=== PATIENT | female | born 1960 | race Two or more races ===

== ENCOUNTER 2021-12-11 11:17 | Outpatient (CLI) | payer OTHER | END 2021-12-11 11:27 | disposition home or self-care (01) | LOC: LAB 11:17 | PROVIDERS: ATTEND Radiology Diagnostic Radiology | DX: K57.20 Diverticulitis of large intestine with perforation and abscess without bleeding (principal); K57.32 Diverticulitis of large intestine without perforation or abscess without bleeding ==

== ENCOUNTER 2021-12-20 08:19 | Outpatient (CLI) | payer OTHER | END 2021-12-20 08:21 | disposition home or self-care (01) | LOC: RX STUDY 08:19 | PROVIDERS: ATTEND Colon & Rectal Surgery | DX: K57.20 Diverticulitis of large intestine with perforation and abscess without bleeding (principal) ==

== ENCOUNTER 2022-02-13 06:02 | Day surgery (SDC) | payer OTHER | END 2022-02-13 09:10 | disposition home or self-care (01) | LOC: AMB-ENDOS 06:02 → CIR.AMB 14:15 | PROVIDERS: ATTEND Colon & Rectal Surgery | DX: K64.0 First degree hemorrhoids (principal); Z93.2 Ileostomy status; K57.30 Diverticulosis of large intestine without perforation or abscess without bleeding; Z20.822 Contact with and (suspected) exposure to COVID-19; K62.89 Other specified diseases of anus and rectum; I10 Essential (primary) hypertension ==

== ENCOUNTER 2022-05-11 09:15 | Inpatient (IN) | payer OTHER ==
[~2022-05-11] VITALS: Ht 154.9 cm; Wt 63.5 kg
[2022-05-11] MEDS ORDERED: LOSARTAN POTASS50 MG PO (12:00)
[2022-05-11] MEDS ORDERED: METOP PO (12:00)
[2022-05-11] MEDS ORDERED: CREST PO (12:00)
[2022-05-11] MEDS ORDERED: CLONAZEPAM2 MG PO (12:01)
[2022-05-11] MEDS ORDERED: MULTIVIT PO (12:02)
[2022-05-11] MEDS ORDERED: PROZAC PO (12:02)
[2022-05-16] MEDS ORDERED: TOPROL XL25 M1 (13:39)
[2022-05-16] MEDS ORDERED: CRESTOR5 MG (13:39)
[2022-05-16] MEDS ORDERED: PROZAC10 MG (13:39)
[2022-05-16] MEDS ORDERED: MULTI VITAMIN1 EACH (13:39)
== END 2022-06-07 16:37 | disposition home or self-care (01) | DRG 329 ==
LOC: O/R 05-16 08:18 → SURH 05-16 08:18
PROVIDERS: ADMIT Colon & Rectal Surgery; ATTEND Colon & Rectal Surgery
PROC: 0DBP0ZZ Excision of Rectum, Open Approach (ICD-10-PCS; 2022-05-16)
PROC: 0DB80ZZ Excision of Small Intestine, Open Approach (ICD-10-PCS; 2022-05-16)
PROC: 0DNW0ZZ Release Peritoneum, Open Approach (ICD-10-PCS; 2022-05-16)
PROC: 0DN80ZZ Release Small Intestine, Open Approach (ICD-10-PCS; 2022-05-16)
PROC: 0DTN0ZZ Resection of Sigmoid Colon, Open Approach (ICD-10-PCS; principal; 2022-05-16 19:30)
PROC: 02HV33Z Insertion of Infusion Device into Superior Vena Cava, Percutaneous Approach (ICD-10-PCS; 2022-05-25)
PROC: 8E0ZXY6 Isolation (ICD-10-PCS; 2022-05-28)
PROC: 2W13X6Z Compression of Abdominal Wall using Pressure Dressing (ICD-10-PCS; 2022-06-01)
DX: K57.20 Diverticulitis of large intestine with perforation and abscess without bleeding (principal); J18.0 Bronchopneumonia, unspecified organism; J95.89 Other postprocedural complications and disorders of respiratory system, not elsewhere classified; T81.49XA Infection following a procedure, other surgical site, initial encounter; T81.31XA Disruption of external operation (surgical) wound, not elsewhere classified, initial encounter; Z16.12 Extended spectrum beta lactamase (ESBL) resistance; B96.20 Unspecified Escherichia coli [E. coli] as the cause of diseases classified elsewhere; B96.4 Proteus (mirabilis) (morganii) as the cause of diseases classified elsewhere; Z43.3 Encounter for attention to colostomy; K66.0 Peritoneal adhesions (postprocedural) (postinfection)

== ENCOUNTER 2024-07-05 06:42 | Emergency (ER) | payer OTHER ==
[~2024-07-05] VITALS: Ht 162.6 cm; Wt 77.1 kg
[~2024-07-05 06:42] MED LIST: BENZONATATE200 M1 PO; CLONAZEPAM2 MG PO; CREST PO; CRESTOR5 MG; LOSARTAN POTASS50 MG PO; METOP PO; MULTI VITAMIN1 EACH; MULTIVIT PO; PEPCID AC20 MG PO; PROZAC PO; PROZAC10 MG; TOPROL XL25 M1; ZITHROMAX500 MG PO
[2024-07-05] MEDS ORDERED: MECLIZINE HCL25 MG PO (09:36)
== END 2024-07-05 09:51 | disposition home or self-care (01) ==
LOC: ER 06:44
DX: R42 Dizziness and giddiness (principal); H61.23 Impacted cerumen, bilateral; H93.13 Tinnitus, bilateral; Z88.8 Allergy status to other drugs, medicaments and biological substances; I10 Essential (primary) hypertension; Z98.890 Other specified postprocedural states

== ENCOUNTER 2024-07-23 12:04 | Emergency (ER) | payer OTHER ==
[~2024-07-23] VITALS: Ht 154.9 cm; Wt 77.1 kg
[~2024-07-23 12:04] MED LIST changes: +MECLIZINE HCL25 MG PO
[2024-07-23] MEDS ORDERED: 0.9 % SODIUM CHLORIDE 1,000 ML IV SCH (12:45)
[2024-07-23] MEDS ORDERED: KETOROLAC TROMETHAMINE 30 MG VIAL IV ONE (12:45)
[2024-07-23] MEDS ORDERED: KETOROLAC TROMETHAMINE 30 MG VIAL ONE (12:46)
[2024-07-23] MEDS ORDERED: BARIUM SULFATE 450 ML ORAL.SUSP PO ONE (12:46)
[2024-07-23 13:17] LABS: HEMOGLOBIN 11.9 g/dL (12.0-15.00); MEAN CELL VOLUME 87.2 fL (80.00-100.00); MEAN CORPUSCULAR HEMOGLOBIN 28.8 pg (27.00-32.0); PLATELET COUNT 250 K/uL (150-450); RED BLOOD COUNT 4.14 M/uL (4.00-6.00); RED CELL DISTRIBUTION WIDTH 14.2 % (11.5-14.5)
[2024-07-23 13:41] LABS: CALCIUM 9.4 mg/dL (8.5-10.1); CREATININE SERUM 0.7 mg/dL (0.55-1.02); GFR 84.24; POTASSIUM 3.99 mEq/L (3.5-5.1)
[2024-07-23 13:49] LABS: PH,URINE 5.5 (5.0-8.0); URINE APPEARANCE Error; URINE BILIRRUBIN Negative (NEGATIVE); URINE BLOOD Negative; URINE COLOR Yellow; URINE GLUCOSE Negative (NEGATIVE); URINE KETONE Negative (NEGATIVE); URINE LEUKOCYTE Negative; URINE NITRATE Negative; URINE PROTEIN Negative (NEGATIVE); URINE UROBILINOGEN 0.2 E.U./dl
[2024-07-23 13:52] LABS: URINE BACTERIA 74.6 uL (0.0-1933); URINE EPITHELIAL CELLS 5.5 uL (0.0-38.8); URINE RBC 6.9 uL (0.0-20.8); URINE WBC 4.2 uL (0.0-23.2)
== END 2024-07-23 18:05 | disposition home or self-care (01) ==
LOC: ER 12:05
PROVIDERS: Emergency Medicine
DX: R10.9 Unspecified abdominal pain (principal); M54.50 Low back pain, unspecified; Z88.1 Allergy status to other antibiotic agents
CPT/HCPCS: 36415; 74177; Q9965

== ENCOUNTER 2024-12-30 10:05 | Emergency (ER) | payer OTHER ==
[~2024-12-30] VITALS: Ht 165.1 cm; Wt 75.3 kg
[2024-12-30] MEDS ORDERED: FAMOTIDINE/PF 20 MG in 0.9 % SODIUM CHLORIDE 8 ML IV PUSH STA (10:50)
[2024-12-30] MEDS ORDERED: METOCLOPRAMIDE HCL 5 MG/ML VIAL ONE (10:52)
[2024-12-30] MEDS ORDERED: FAMOTIDINE/PF 20 MG/2 ML VIAL ONE (10:52)
[2024-12-30] MEDS ORDERED: METOCLOPRAMIDE HCL 10 MG in DEXTROSE 5 % IN WATER 50 ML IV ONE (11:00)
[2024-12-30 11:32] LABS: BASO % 0.4 % (0.1-1.2); EOS # 0.31 (0.04-0.54); EOS % 4.4 % (0.7-7.0); LYMPH # 1.65 (1.18-3.74); LYMPH % 23.6 % (19.3-53.1); MEAN PLATELET VOLUME 10.50 fl (9.4-12.4); MONO # 0.50 (0.24-0.82); MONO % 7.1 % (4.7-12.5); NEUT # 4.50 (1.56-6.13); NEUT % 64.4 % (34.0-71.1); RED CELL DISTRIBUTION WIDTH 13.5 % (11.6-14.4)
[2024-12-30 11:59] LABS: ALT/SGPT 32.0 U/L (12-78); AST/SGOT 35.0 U/L (15-37); BILIRUBIN TOTAL 0.4 mg/dL (0.3-1.2); BUN CREA RATIO 14.0 (7.0-25.0); CREATININE SERUM 0.78 mg/dL (0.55-1.02); GFR 74.35; GLOBULINA 4.2 G/DL (2.4-3.5); GLUCOSE FASTING 95.0 mg/dL (65-100); OSMOLALITY SERUM 280.0 MOSM/KG (275-295)
[2024-12-30] MEDS ORDERED: PEPCID AC20 MG PO (13:47)
[2024-12-30 13:54] VITALS: BP 146/74; O2SAT 98
== END 2024-12-30 13:56 | disposition home or self-care (01) ==
LOC: ER 10:05
PROVIDERS: General Practice
DX: K29.70 Gastritis, unspecified, without bleeding (principal); I10 Essential (primary) hypertension; Z88.8 Allergy status to other drugs, medicaments and biological substances